=== PATIENT | female | born 1975 | race Caucasian/White ===

== ENCOUNTER 2018-08-31 06:51 | Day surgery (SDC) | payer MEDICAID ==
--- NOTE | 2018-08-29 16:54 | PREOPHP ---
DATE OF ADMISSION: 08/31/2018 Scheduled for outpatient surgery on 08/31/2018. HISTORY OF PRESENT ILLNESS: The patient is a 43-year-old female in good health who underwent screeni ng mammography revealing a left breast 6 mm mass at 1 o'clock 3 cm from the nipple. 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 She is scheduled to undergo excisional biopsy of this lesion with preoperative needle localization. PAST MEDICAL HISTORY: MEDICATIONS: None. ALLERGIES: NONE. OPERATIONS: section x3. OBSTETRIC AND GYNECOLOGIC HISTORY: 3, para 3. She has regular menstrual periods. PHYSICAL EXAMINATION: VITAL SIGNS: The patient is 5 feet, 149 pounds. Normal vital signs. HEENT: Within normal limits. LUNGS: Clear. HEART: Regular rate, rhythm. BREASTS: Small. There was no mass in either breast. There is dense tissue in the upper outer quadr ant, bilateral. There is no evidence of axillary or supraclavicular lymphadenopathy. ABDOMEN: Soft. PELVIC AND RECTAL: Per primary care. EXTREMITIES: Without edema. NEUROLOGIC: Physiologic. 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 PLAN: Excision of left breast lesion with preoperative needle localization. I had a full discussion with the patient regarding the nature of the condition, the nature of the surgery, indications, alte rnatives, options and risks including bleeding, infection, scarring and distortion of the breast or n ipple, need for additional surgery based on final pathology, et cetera. All questions have been answ ered. She understands and agrees to proceed under general anesthesia as an outpatient. Dictated By: TANESHA HASKINS/TREY Conf#: [id number] DID#: [id number]
[2018-08-31] VITALS (14 sets, daily range): BP systolic 114–128; BP diastolic 58–77; PULSE 68–74; RESP 14–18; Ht 144.8 cm; Wt 67.2 kg
[~2018-08-31] VITALS: Ht 144.8 cm; Wt 67.2 kg
[~2018-08-31 06:51] MED LIST: PROPOFOL 40 ML ONE; ROCURONIUM 50 MG INJ ONE
[2018-08-31] MEDS ORDERED: SEVOFLURANE 15 MIN ONE (07:00)
[2018-08-31] MEDS ORDERED: PROPOFOL 200 MG INJ ONE (07:00)
[2018-08-31] MEDS ORDERED: CEFAZOLIN 1 GM INJ ONE (07:00)
[2018-08-31] MEDS ORDERED: LIDOCAINE 2% (SDV) 5 ML INJ ONE (07:00)
--- NOTE | 2018-08-31 07:31 | HPN ---
Date/Time of Note Date/Time of Note DATE: 08/31/18 TIME: 07:31 Interval H&P Admission Note Pt. seen H&P reviewed: No system changes TANESHA ZHOU Aug 31, 2018 07:31
[2018-08-31] MEDS ORDERED: CEFAZOLIN 1 GM/50 ML (PMX) 50 ML IVPB ONE (08:00)
[2018-08-31] MEDS ORDERED: SOD CHLORIDE 0.9% 1,000 ML IV SCH (08:00)
[2018-08-31] MEDS ORDERED: ACETAMINOPHEN 500 MG TAB PO ONE (08:30)
[2018-08-31] MEDS ORDERED: METOCLOPRAMIDE 10 MG INJ IV ONE (10:00)
[2018-08-31] MEDS ORDERED: BUPIVACAINE 0.5% (SDV) 30 ML INJ ONE (10:01)
--- NOTE | 2018-08-31 10:01 | PREAC ---
Date/Time of Note Date/Time of Note DATE: 08/31/18 TIME: 09:59 Anesthesia Eval and Record Evaluation Time Pre-Procedure Interview DATE: 08/31/18 TIME: 09:59 Age 43 Sex female NPO: 8 hrs Preoperative diagnosis L breast lesion Planned procedure L breast lesion excision Past Medical History Past Medical History: Includes GI: Obesity Surgery & Anesthesia Issues No known issue Meds Anticoagulation: No Beta Jeison within 24 hr: No Reason Beta Jeison not given: Pt. not on B-Jeison No Active Prescriptions or Reported Meds Current Medications Sodium Chloride 1,000 ml @ 75 mls/hr [id number] IV ; Start 08/31/18 at 08:00; Stop 08/31/18 at 21:19 Metoclopramide HCl (Reglan) 10 mg ONCE ONCE IV ; Start 08/31/18 at 10:00; Stop 08/31/18 at 10:01 Meds reviewed: Yes Allergies Coded Allergies: No Known Allergy (Unverified , 08/31/18) Allergies Reviewed: Yes Labs/Studies Labs Reviewed: Reviewed by anesthesiologist test: Negative Pre-procedure Exam Last vitals Vital Signs Date Temp Pulse Resp B/P (MAP) Pulse Ox O2 O2 Flow FiO2 Time Delivery Rate 08/31/18 98.7 71 16 128/58 98 09:55 (81) Airway: Adequate mouth opening, Adequate thyromental dist Mallampati: Mallampati II Teeth: Normal Lung: Normal Heart: Normal ASA Physical Status ASA physical status: 2 Emergency: None Planned Anesthetic General/MAC: LMA Pre-operative Attestations Prior to commencing anesthesia and surgery, the patient was re-evaluated, there was verification of: *The patient's identity *The results of appropriate recent lab work and preoperative vital signs *The above evaluation not changing prior to induction *Anesthetic plan, risk benefits, alternative and complications discussed with patient/family; questions answered; patient/family understands, accepts and wishes to proceed. SHYLA LANGE Aug 31, 2018 10:01
[2018-08-31] MEDS ORDERED: ISOSULFAN BLUE 1% 5 ML INJ SC ONE (10:02)
[2018-08-31] MEDS ORDERED: MIDAZOLAM 1 MG/ML 2 ML INJ ONE (10:28)
[2018-08-31] MEDS ORDERED: FENTAnyl 50 MCG/ML VIAL ONE (10:29)
[2018-08-31] MEDS ORDERED: ALBUTEROL 0.083% (NEB) 2.5 MG/3 ML AMP HHN PRN (10:30)
[2018-08-31] MEDS ORDERED: LABETALOL HCL 20MG INJ IV PRN (10:30)
[2018-08-31] MEDS ORDERED: HYDROmorphONE 1 MG/5 ML IV SYRINGE IV PRN ×2 (10:30)
[2018-08-31] MEDS ORDERED: MEPERIDINE 25 MG INJ IV PRN (10:30)
[2018-08-31] MEDS ORDERED: DEXAMETHASONE 4 MG/ML 5 ML INJ ONE (10:30)
[2018-08-31] MEDS ORDERED: FAMOTIDINE 20 MG INJ ONE (10:30)
[2018-08-31] MEDS ORDERED: FENTAnyl 50 MCG/ML VIAL IV PRN ×2 (10:30)
[2018-08-31] MEDS ORDERED: ONDANSETRON 4 MG INJ IV PRN (10:30)
[2018-08-31] MEDS ORDERED: OXYCODONE/ACETAMINOPHEN (5/325) TAB PO PRN ×2 (10:30)
[2018-08-31] MEDS ORDERED: morphine (1 MG/ML) 10ML SYRINGE IV PRN ×2 (10:30)
[2018-08-31] MEDS ORDERED: DIPHENHYDRAMINE 50 MG INJ IV PRN (10:30)
[2018-08-31] MEDS ORDERED: EPHEDrine SULFATE 50 MG/5 ML SYG ONE (10:57)
[2018-08-31] MEDS ORDERED: LIDOCAINE 1% (MPF) 30 ML INJ ONE (11:16)
--- NOTE | 2018-08-31 11:31 | SIPON ---
Date/Time of Note Date/Time of Note DATE: 08/31/18 TIME: 11:30 Operative Report Preoperative Diagnosis left breast mass Postoperative Diagnosis same Operation/Procedure Performed left breast biopsy with pre-operative needle localization Surgeon see signature line neurology physician assistant none Anesthesia: general Estimated blood loss: minimal Transfusion Required none Specimen left breast 6mm mass Grafts/Implants none Complications none TANESHA ZHOU Aug 31, 2018 11:31
--- NOTE | 2018-08-31 11:41 | PAC ---
Date/Time of Note Date/Time of Note DATE: 08/31/18 TIME: 11:40 Post-Anesthesia Notes Post-Anesthesia Note Last documented vital signs Vital Signs Date Temp Pulse Resp B/P Pulse Ox O2 O2 Flow FiO2 Time (MAP) Delivery Rate 08/31/18 98.7 97.8 71 65 16 16 128/58 98 100 8L face 09:55 113 (81) 119 mask Activity: WNL Respiratory function: WNL Cardiovascular function: WNL Mental status: Baseline Pain reasonably controlled: Yes Hydration appropriate: Yes Nausea/Vomiting absent: Yes SHYLA LANGE Aug 31, 2018 11:41
--- NOTE | 2018-08-31 14:11 | OPR ---
DATE OF OPERATION: 08/31/2018 SURGEON: Tanesha Larios MD CUSTOMER ENGAGEMENT ANALYST: None. ANESTHESIOLOGIST: Kavitha George CRNA TYPE OF ANESTHESIA: General. PREOPERATIVE DIAGNOSIS: Left breast mass, 6 mm, fibroepithelial lesion, fibroadenoma versus phyllode s tumor. POSTOPERATIVE DIAGNOSIS: Left breast mass, 6 mm, fibroepithelial lesion, fibroadenoma versus phyllod es tumor. OPERATION PERFORMED: Left breast biopsy with preoperative needle localization. DESCRIPTION OF PROCEDURE: The patient was taken to the operating room and under general anesthesia w ith sequential compression device stockings in place, she was prepped and draped in the usual fashion . The lesion was located at 1 o'clock 3 cm from the nipple. A curvilinear breast incision was made, achieving hemostasis with cautery. The wire was brought into the field. Flaps were dissected circu mferentially. The wire with the surrounding breast tissue was excised with cautery. Specimen radiog raph was obtained and the tissue was given to the pathologist. Hemostasis was achieved with cautery. The breast capsule was closed with interrupted 3-0 Vicryl sutures. The incision was closed with in terrupted 3-0 Vicryl, deep dermal subcutaneous sutures followed by continuous 4-0 Monocryl subcuticul ar suture. Tincture of benzoin and 1/2-inch Steri-Strips were applied, followed by dry sterile dress ing. Final sponge and needle counts were correct. The patient tolerated the procedure well and left the operating room in good condition. Dictated By: TANESHA HASKINS/TREY Conf#: [id number] [facility]#: [id number]
== END 2018-08-31 13:56 | disposition home or self-care (01) ==
LOC: SDS 06:51
PROVIDERS: ATTEND Surgery
DX: D24.2 Benign neoplasm of left breast (principal); E66.9 Obesity, unspecified; Z68.32 Body mass index [BMI] 32.0-32.9, adult
CPT/HCPCS: 19101; 84703; 88307; J0690; J1100; J2250; J2765; J3010; Z7512; Z7610; Q9968